=== PATIENT | male | born 1985 | race Hispanic/Latino ===

== ENCOUNTER 2016-10-23 05:44 | Emergency (ER) | payer MEDICAID, OTHER ==
[~2016-10-23] VITALS: Ht 177.8 cm; Wt 76.4 kg
[2016-10-23 05:57] VITALS: BP 105/65; PULSE 73; RESP 16; O2SAT 97
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
[2016-10-23] MEDS ORDERED: Triamcinolone Acet 40 mg/mL 5 mL Inj INTRARTICU ONE (06:35)
[2016-10-23 07:25] LABS: BASOPHILS % (AUTO) 0.3 % (0-3); EOSINOPHILS % (AUTO) 5.1 % (0-5); MONOCYTES % (AUTO) 7.4 % (4-12); Mean Corpuscular Hemoglobin 29.8 pg (27.0-35.0); Mean Corpuscular Volume 83.8 fL (81-100); NEUTROPHILS % (AUTO) 48.3 % (40-74); Platelet Count 248 bil/L (150-400)
[2016-10-23 07:51] LABS: ERYTHROCYTE SEDIMENTATION RATE 1 mm/hr (0-15)
[2016-10-23] MEDS ORDERED: HYDROcodone-APAP 5-325 mg Tablet PO ONE (08:05)
[2016-10-23] MEDS ORDERED: IBUP-1827 PO (08:45)
[2016-10-23 09:02] VITALS: BP 117/80; PULSE 80; RESP 16; O2SAT 99
== END 2016-10-23 09:03 | disposition home or self-care (01) ==
LOC: SED 05:44
DX: M25.412 Effusion, left shoulder (principal); M25.512 Pain in left shoulder; R20.0 Anesthesia of skin; F17.200 Nicotine dependence, unspecified, uncomplicated; Z87.828 Personal history of other (healed) physical injury and trauma
CPT/HCPCS: 20610; 36415; 80053; 84550; 85025; 85651; 86140; 99283; J3301